=== PATIENT | male | born 1980 | race Caucasian/White ===

== ENCOUNTER 2023-05-01 08:48 | Emergency (ER) | payer OTHER ==
[~2023-05-01] VITALS: Ht 182.9 cm; Wt 83.0 kg
[2023-05-01] MEDS ORDERED: PREDNISONE 20MG TABLET PO STA (11:21)
[2023-05-01 11:40] LABS: HEMOGLOBIN. 14.7 g/dL (14.0-18.0); MEAN CORPUSCULAR HEMOGLOBIN 31.9 pg (28.0-32.0); MEAN CORPUSCULAR VOLUME 91.2 fL (80.0-94.0); MEAN PLATELET VOLUME 8.5 fl (7.4-10.4); PLATELET 192 x1000/uL (130-400); RED CELL DISTRIBUTION WIDTH 12.5 % (11.6-14.6); WHITE BLOOD COUNT 11.3 x1000/uL (4.5-11.0)
[2023-05-01 11:46] LABS: DIFFERENTIAL COMMENT 1
[2023-05-01] MEDS: IPRATROPIUM BROMIDE (0.02%) 0.5MG/2.5ML NEB HHN STA (11:50)
[2023-05-01 11:53] LABS: ALANINE AMINOTRANSFERASE 18 IU/L (10-49); ALBUMIN 4.6 g/dL (3.2-4.8); ASPARTATE AMINOTRANSFERASE 17 IU/L (<34); BILIRUBIN TOTAL 0.4 mg/dL (0.1-1.0); CALCIUM 8.9 mg/dL (8.7-10.4); CARBON DIOXIDE 26 mEq/L (21-32); CHLORIDE 108 mEq/L (98-107); GLUCOSE 117 mg/dL (70-105); POTASSIUM 3.9 mEq/L (3.5-5.1); PROTEIN TOTAL 7.4 g/dL (6.0-8.3); SODIUM 140 mEq/L (136-145); UREA NITROGEN BLOOD 20 mg/dL (9-23)
[2023-05-01 11:55] VITALS: PULSE 77; RESP 18; O2SAT 98
[2023-05-01] MEDS: ALBUTEROL (0.083%) 2.5MG/3ML NEB HHN SCH (11:55)
[2023-05-01 12:30] LABS: PLATELET ESTIMATE NORMAL
[2023-05-01] MEDS ORDERED: P50 MT (14:13)
[2023-05-01] MEDS: PREDNISONE 20MG TABLET PO NR (14:15)
[2023-05-01 14:27] VITALS: BP 115/60; PULSE 79; RESP 18; TEMP 97.8
== END 2023-05-01 14:56 | disposition home or self-care (01) ==
LOC: ER 09:56
DX: R05.9 Cough, unspecified (principal); J45.909 Unspecified asthma, uncomplicated
CPT/HCPCS: 80053; 83880; 85025; 36415; 71045; 94640; 93005; 99285; J7512; Z7610 ×3